=== PATIENT | female | born 1975 | race African-American/Black ===

== ENCOUNTER 2019-06-01 21:47 | Emergency (ER) | payer OTHER ==
[~2019-06-01] VITALS: Ht 172.7 cm; Wt 90.7 kg
[2019-06-01] MEDS ORDERED: BUSPIRONE HCL5 MG PO (21:55)
[2019-06-01 23:08] VITALS: BP 152/83
== END 2019-06-01 23:08 | disposition home or self-care (01) ==
LOC: ER 21:47
DX: M54.5 Low back pain (principal); F17.210 Nicotine dependence, cigarettes, uncomplicated